=== PATIENT | male | born 1965 | race Caucasian/White ===

== ENCOUNTER 2017-10-23 09:55 | Emergency (ER) | payer OTHER ==
[~2017-10-23] VITALS: Ht 182.9 cm; Wt 124.7 kg
[2017-10-23] MEDS ORDERED: AVAPRO150 MG (10:31)
[2017-10-23] MEDS ORDERED: [UNRECOGNIZED DRUG - OTHER] (10:33)
== END 2017-10-23 16:05 | disposition home or self-care (01) ==
LOC: ER 09:55
DX: S92.351A Displaced fracture of fifth metatarsal bone, right foot, initial encounter for closed fracture (principal); S92.341A Displaced fracture of fourth metatarsal bone, right foot, initial encounter for closed fracture; G89.11 Acute pain due to trauma; M79.671 Pain in right foot; X50.9XXA Other and unspecified overexertion or strenuous movements or postures, initial encounter; Y93.89 Activity, other specified; Y92.098 Other place in other non-institutional residence as the place of occurrence of the external cause; Y99.8 Other external cause status

== ENCOUNTER → 2019-03-16 | Outpatient (CLI) | payer OTHER ==
[~2019-03-16] MED LIST: AVAPRO150 MG; [UNRECOGNIZED DRUG - OTHER]
== END | disposition home or self-care (01) ==
LOC: RAD 12:35
DX: M25.571 Pain in right ankle and joints of right foot (principal)

== ENCOUNTER 2023-12-26 14:16 | Outpatient (CLI) | payer OTHER | END 2023-12-26 14:24 | disposition home or self-care (01) | LOC: RAD 14:16 | PROVIDERS: ATTEND Orthopaedic Surgery | DX: M79.642 Pain in left hand (principal) ==